=== PATIENT | female | born 1945 | race Caucasian/White ===

== ENCOUNTER 2023-04-11 16:05 | Emergency (ER) | payer OTHER ==
[~2023-04-11] VITALS: Ht 160 cm; Wt 92.0 kg
[2023-04-11] MEDS ORDERED: AML5T PO (19:49)
[2023-04-11 20:26] VITALS: BP 165/68
== END 2023-04-11 20:32 | disposition home or self-care (01) ==
LOC: ER 16:05
DX: I10 Essential (primary) hypertension (principal); Z88.8 Allergy status to other drugs, medicaments and biological substances

== ENCOUNTER 2023-06-08 11:45 | Inpatient (IN) | payer OTHER ==
[~2023-06-08] VITALS: Ht 160 cm; Wt 91.5 kg
[~2023-06-08 11:45] MED LIST: AML5T PO
[2023-06-08] MEDS ORDERED: VANCOMYCIN PER PHARMACY 0 MG IV SCH (12:45)
[2023-06-08] MEDS ORDERED: PIPERACILLIN-TAZOB 3.375GM 100 ML IV ONE (12:45)
[2023-06-08] MEDS ORDERED: VANCOMYCIN 1GM/250ML 250 ML IV ONE (13:00)
[2023-06-08 13:14] LABS: Basophils # (auto) 0.1 10 ^3/uL (0-0.2); Basophils % (auto) 0.7 % (0.0-2.0); Eosinophils # (auto) 0.4 10 ^3/uL (0-0.8); Eosinophils % (auto) 4.2 % (0.0-7.0); Hematocrit 27.7 % (36.0-46.0); Hemoglobin 9.1 g/dL (12.2-16.2); Lymphocytes # (auto) 0.9 10 ^3/uL (0.4-5.4); Lymphocytes % (auto) 9.8 % (10.0-50.0); Mean Corpuscular Hemoglobin 29.4 pg (28.0-32.0); Mean Corpuscular Hgb Conc. 32.9 g/dL (32.0-36.0); Mean Corpuscular Volume 89.3 fL (80.0-100.0); Monocytes # (auto) 0.7 10 ^3/uL (0-1.3); Monocytes % (auto) 7.9 % (0.0-12.0); Neutrophils # (auto) 7.2 10 ^3/uL (1.6-8.6); Neutrophils % (auto) 77.4 % (37.0-80.0); Red Cell Distribution Width 13.5 % (11.8-14.3); White Blood Cell 9.3 10^3/uL (4.4-10.8)
[2023-06-08] MEDS ORDERED: FUROSEMIDE 40 MG/4 ML VIAL IV ONE (13:30)
[2023-06-08 13:49] LABS: Alanine Aminotransferase 15 U/L (7-40); Albumin 4.1 g/dL (3.2-4.8); Alkaline Phosphatase 95 U/L (46-116); Aspartate Aminotransferase 17 U/L (13-40); BUN/Creatinine Ratio 16.7 (10.0-20.0); Bilirubin, Total 0.5 mg/dL (0.2-1.0); Blood Urea Nitrogen 41 mg/dL (9-23); Chloride 102 mmol/L (98-107); Glucose 98 mg/dL (74-106); Potassium 4.8 mmol/L (3.5-5.1); Sodium 136 mmol/L (136-145)
[2023-06-08 14:39] LABS: Erythrocyte Sedimentation Rate 111 mm/hr (0-20)
[2023-06-08] MEDS ORDERED: ONDANSETRON HCL 4 MG/2 ML VIAL IV PRN (14:45)
[2023-06-08] MEDS ORDERED: TEMAZEPAM 15 MG CAP PO PRN (14:45)
[2023-06-08] MEDS ORDERED: ACETAMINOPHEN 325 MG TAB PO PRN (14:45)
[2023-06-08] MEDS ORDERED: NITROGLYCERIN 0.4 MG SL TAB SL PRN (14:45)
[2023-06-08] MEDS ORDERED: DOCUSATE SOD 100 MG CAP PO PRN (14:45)
[2023-06-08] MEDS ORDERED: MORPHINE SULFATE INJ 2 MG/ml SYRG IV PRN ×2 (14:45)
[2023-06-08] MEDS: SODIUM CHLORIDE 0.9% 1,000 ML IV SCH (20:38)
[2023-06-08] MEDS: PIPERACILLIN-TAZOB 3.375GM 100 ML IV SCH (23:27)
[2023-06-08] MEDS: HYDROcodone-ACET 5/325MG TAB PO PRN (23:27)
[2023-06-09] VITALS (7 sets, daily range): BP systolic 148–160; BP diastolic 61–70; PULSE 75–93; RESP 16–18; TEMP 97.6–97.9; O2SAT 97–98
[2023-06-09] MEDS: SODIUM CHLORIDE 0.9% 1,000 ML IV SCH ×2 (00:45→12:24)
[2023-06-09 06:05] LABS: Urine Bacteria NONE SEEN /hpf (None Seen); Urine Blood Negative /uL (Negative); Urine Clarity Clear (Clear); Urine Color Yellow (Yellow); Urine Protein, UAD Negative (Negative); Urine Specific Gravity 1.013 (1.001-1.035); Urine Urobilinogen Normal (Negative); Urine WBC 3 /hpf (0 - 5); Urine pH 5.5 (5.0-8.0)
[2023-06-09] MEDS: PIPERACILLIN-TAZOB 3.375GM 100 ML IV SCH (07:09)
[2023-06-09 07:26] LABS: Basophils # (auto) 0.1 10 ^3/uL (0-0.2); Basophils % (auto) 0.6 % (0.0-2.0); Eosinophils # (auto) 0.5 10 ^3/uL (0-0.8); Eosinophils % (auto) 4.8 % (0.0-7.0); Hematocrit 27.9 % (36.0-46.0); Hemoglobin 9.1 g/dL (12.2-16.2); Lymphocytes # (auto) 0.8 10 ^3/uL (0.4-5.4); Lymphocytes % (auto) 8.5 % (10.0-50.0); Mean Corpuscular Hemoglobin 29.2 pg (28.0-32.0); Mean Corpuscular Hgb Conc. 32.7 g/dL (32.0-36.0); Mean Corpuscular Volume 89.3 fL (80.0-100.0); Monocytes # (auto) 0.7 10 ^3/uL (0-1.3); Monocytes % (auto) 7.7 % (0.0-12.0); Neutrophils # (auto) 7.5 10 ^3/uL (1.6-8.6); Neutrophils % (auto) 78.4 % (37.0-80.0); Nucleated Red Blood Cells % 0.1 %; Red Blood Cells 3.12 10^6/uL (4.0-5.20); Red Cell Distribution Width 13.2 % (11.8-14.3); White Blood Cell 9.6 10^3/uL (4.4-10.8)
[2023-06-09 07:54] LABS: Alanine Aminotransferase 10 U/L (7-40); Albumin 4.3 g/dL (3.2-4.8); Alkaline Phosphatase 71 U/L (46-116); Anion Gap 9.7 (5-15); Aspartate Aminotransferase 17 U/L (13-40); BUN/Creatinine Ratio 16.2 (10.0-20.0); Blood Urea Nitrogen 38 mg/dL (9-23); Calcium 9.9 mg/dL (8.5-10.1); Carbon Dioxide 24.3 mmol/L (20-30); Chloride 101 mmol/L (98-107); Glucose 98 mg/dL (74-106); Potassium 4.1 mmol/L (3.5-5.1); Sodium 135 mmol/L (136-145)
[2023-06-09 07:55] LABS: Bilirubin, Total 0.5 mg/dL (0.2-1.0); Total Protein 7.7 g/dL (5.7-8.2)
[2023-06-09 09:38] LABS: INR 1.05 (0.9-1.15); Partial Thromboplastin Time 33.1 SEC (24.5-34.5)
[2023-06-09] MEDS ORDERED: fentaNYL CITRATE 100 MCG/2 ML VL ONE (10:18)
[2023-06-09] MEDS ORDERED: MIDAZOLAM HCL 2MG/2ML 2ml VIAL (1mg/ml) ONE (10:19)
[2023-06-09] MEDS ORDERED: PROPOFOL 10 MG/ML 20 ML IV ONE (10:47)
[2023-06-09] MEDS ORDERED: DexAMETHasone SOD PHOS 10MG/1ML VIAL INJ ONE (10:47)
[2023-06-09] MEDS ORDERED: KETAMINE HCL 10 ML ONE (10:48)
[2023-06-09] MEDS ORDERED: ePHEDrine SULFATE 50 MG/ML AMP IV PRN (11:00)
[2023-06-09] MEDS ORDERED: MORPHINE SULFATE 4 MG/ML SYR/VIAL IV PRN (11:00)
[2023-06-09] MEDS ORDERED: HYDROmorphone HCL 2 MG/ML VL/or syr IV PRN (11:00)
[2023-06-09] MEDS ORDERED: ONDANSETRON HCL 4 MG/2 ML VIAL IV PRN (11:00)
[2023-06-09] MEDS ORDERED: ACCU-CHEK COMFORT CURVE STRIP VI ONE (11:00)
[2023-06-09] MEDS ORDERED: LABETALOL HCL 5 MG/ML 4ML SYRINGE IV PRN (11:00)
[2023-06-09] MEDS ORDERED: MIDAZOLAM HCL 2MG/2ML 2ml VIAL (1mg/ml) IV PRN (11:00)
[2023-06-09] MEDS: MULTIPLE VITAMIN TAB PO SCH (12:50)
[2023-06-09] MEDS: ENOXAPARIN SOD 30 MG/0.3 ML SYRINGE SC SCH (12:50)
[2023-06-09] MEDS: HYDROcodone-ACET 5/325MG TAB PO PRN (12:57)
[2023-06-09] MEDS ORDERED: ATOR40TA52 PO (14:22)
[2023-06-09] MEDS ORDERED: MET50T PO (14:22)
[2023-06-09] MEDS ORDERED: QUET100T47 PO (14:22)
[2023-06-09] MEDS ORDERED: GABA-339 PO (14:22)
[2023-06-09] MEDS ORDERED: BUPR100T16 PO (14:22)
[2023-06-09] MEDS ORDERED: FEBU80TA3 PO (14:22)
[2023-06-09] MEDS ORDERED: ALEN35TA18 PO (14:22)
[2023-06-09] MEDS ORDERED: AMLO1TAB22 PO (14:22)
[2023-06-09] MEDS ORDERED: FENO145T27 PO (14:22)
[2023-06-09] MEDS ORDERED: HYDR-4297 PO (14:22)
[2023-06-09] MEDS ORDERED: LEV25T PO (14:22)
[2023-06-09] MEDS ORDERED: LIOT25TA19 PO (14:22)
[2023-06-09] MEDS ORDERED: PATI1POW PO (14:22)
[2023-06-09] MEDS ORDERED: PANT40T PO (14:22)
[2023-06-09] MEDS ORDERED: LOS25T PO (14:22)
[2023-06-09] MEDS: cefTRIAXone 1GM/50ML D5W 50 ML IV SCH (14:33)
[2023-06-09 15:42] LABS: Protein, Urine 18.9 mg/dL (0.0-11.9)
[2023-06-09 15:45] LABS: Creatinine, Urine 57.13 mg/dL (30.0-125.0)
[2023-06-09] MEDS ORDERED: LIDOCAINE 1% (LOCAL ANESTH.) PF 5ml SDV ID ONE (16:30)
[2023-06-09] MEDS ORDERED: VANCOMYCIN PER PHARMACY 0 MG IV SCH (18:15)
[2023-06-09] MEDS ORDERED: VANCOMYCIN 1GM/250ML 250 ML IV ONE (20:00)
[2023-06-09] MEDS: hydrALAZINE HCL 25 MG TAB PO SCH (21:45)
[2023-06-09] MEDS: METOPROLOL TARTRATE 50 MG TAB PO SCH (21:46)
[2023-06-09] MEDS: metroNIDAZOLE 500 MG TAB PO SCH (21:46)
[2023-06-09] MEDS: SODIUM CHLOR 0.9% PF (SALINE LOCK) 10ML VIAL/SYR IV SCH (23:39)
[2023-06-10] VITALS (7 sets, daily range): BP systolic 121–163; BP diastolic 53–67; PULSE 64–72; RESP 14–20; TEMP 97.6–98.3; O2SAT 94–98
[2023-06-10] MEDS: HYDROcodone-ACET 5/325MG TAB PO PRN ×3 (01:25→21:17)
[2023-06-10] MEDS: metroNIDAZOLE 500 MG TAB PO SCH ×3 (05:43→21:12)
[2023-06-10 06:59] LABS: Chloride 103 mmol/L (98-107); Potassium 4.4 mmol/L (3.5-5.1); Sodium 135 mmol/L (136-145)
[2023-06-10 07:00] LABS: Anion Gap 7.9 (5-15); Carbon Dioxide 24.1 mmol/L (20-30)
[2023-06-10 07:01] LABS: Calcium 9.7 mg/dL (8.5-10.1)
[2023-06-10 07:05] LABS: Glucose 108 mg/dL (74-106); Uric Acid 4.6 mg/dL (3.1-7.8)
[2023-06-10 07:06] LABS: BUN/Creatinine Ratio 20.4 (10.0-20.0); Blood Urea Nitrogen 33 mg/dL (9-23); LDL Cholesterol 95 mg/dL (< 100); Triglycerides 176 mg/dL (< 150)
[2023-06-10 07:07] LABS: Cholesterol 147 mg/dL (< 200); Creatine Kinase IFCC 50 U/L (34-145); HDL Cholesterol 27 mg/dL (40-59)
[2023-06-10 07:08] LABS: Phosphorus 3.8 mg/dL (2.4-5.1)
[2023-06-10 07:38] LABS: Basophils # (auto) 0 10 ^3/uL (0-0.2); Basophils % (auto) 0.3 % (0.0-2.0); Eosinophils # (auto) 0 10 ^3/uL (0-0.8); Eosinophils % (auto) 0.1 % (0.0-7.0); Hematocrit 26.9 % (36.0-46.0); Hemoglobin 8.9 g/dL (12.2-16.2); Lymphocytes # (auto) 0.7 10 ^3/uL (0.4-5.4); Lymphocytes % (auto) 7.5 % (10.0-50.0); Mean Corpuscular Hemoglobin 29.3 pg (28.0-32.0); Mean Corpuscular Hgb Conc. 33.1 g/dL (32.0-36.0); Mean Corpuscular Volume 88.7 fL (80.0-100.0); Monocytes # (auto) 0.5 10 ^3/uL (0-1.3); Monocytes % (auto) 5.4 % (0.0-12.0); Neutrophils # (auto) 8.1 10 ^3/uL (1.6-8.6); Neutrophils % (auto) 86.7 % (37.0-80.0); Red Blood Cells 3.03 10^6/uL (4.0-5.20); Red Cell Distribution Width 13.2 % (11.8-14.3); White Blood Cell 9.4 10^3/uL (4.4-10.8)
[2023-06-10] MEDS: cefTRIAXone 1GM/50ML D5W 50 ML IV SCH (08:43)
[2023-06-10] MEDS: MULTIPLE VITAMIN TAB PO SCH (08:46)
[2023-06-10] MEDS: LOSARTAN POTASSIUM 25 MG TAB PO SCH (08:47)
[2023-06-10] MEDS: amLODIPine BESYLATE 5 MG TAB PO SCH (08:47)
[2023-06-10] MEDS: ENOXAPARIN SOD 30 MG/0.3 ML SYRINGE SC SCH (08:48)
[2023-06-10] MEDS: hydrALAZINE HCL 25 MG TAB PO SCH ×2 (10:23→22:22)
[2023-06-10] MEDS: METOPROLOL TARTRATE 50 MG TAB PO SCH ×2 (10:24→22:21)
[2023-06-10] MEDS: SODIUM CHLOR 0.9% PF (SALINE LOCK) 10ML VIAL/SYR IV SCH ×2 (10:24→21:13)
[2023-06-10] MEDS: VANCOMYCIN 1GM/250ML 250 ML IV SCH (21:00)
[2023-06-10] MEDS: ATORVASTATIN 20 MG TAB PO SCH (21:11)
[2023-06-11] VITALS (7 sets, daily range): BP systolic 113–180; BP diastolic 48–77; PULSE 55–70; RESP 16–20; TEMP 97–98.6; O2SAT 95–98
[2023-06-11] MEDS: metroNIDAZOLE 500 MG TAB PO SCH ×3 (05:33→21:07)
[2023-06-11] MEDS: HYDROcodone-ACET 5/325MG TAB PO PRN ×2 (05:34→16:10)
[2023-06-11 08:02] LABS: Anion Gap 7.7 (5-15); Calcium 10.1 mg/dL (8.5-10.1); Carbon Dioxide 24.3 mmol/L (20-30); Chloride 104 mmol/L (98-107); Potassium 4.6 mmol/L (3.5-5.1); Sodium 136 mmol/L (136-145)
[2023-06-11 08:08] LABS: BUN/Creatinine Ratio 22.5 (10.0-20.0); Blood Urea Nitrogen 36 mg/dL (9-23); Glucose 77 mg/dL (74-106)
[2023-06-11] MEDS: SODIUM CHLOR 0.9% PF (SALINE LOCK) 10ML VIAL/SYR IV SCH ×2 (08:56→21:14)
[2023-06-11] MEDS: cefTRIAXone 1GM/50ML D5W 50 ML IV SCH (08:56)
[2023-06-11] MEDS: hydrALAZINE HCL 25 MG TAB PO SCH ×2 (08:58→21:06)
[2023-06-11] MEDS: LOSARTAN POTASSIUM 25 MG TAB PO SCH (08:59)
[2023-06-11] MEDS: CLOPIDOGREL BISULFATE 75 MG TAB PO SCH (09:00)
[2023-06-11] MEDS: MULTIPLE VITAMIN TAB PO SCH (09:00)
[2023-06-11] MEDS: METOPROLOL TARTRATE 50 MG TAB PO SCH ×2 (09:00→21:07)
[2023-06-11] MEDS: amLODIPine BESYLATE 5 MG TAB PO SCH (09:00)
[2023-06-11] MEDS: ENOXAPARIN SOD 30 MG/0.3 ML SYRINGE SC SCH (09:01)
[2023-06-11] MEDS: hydrALAZINE HCL 20 MG/ML VL IV PRN (17:43)
[2023-06-11] MEDS: VANCOMYCIN 1GM/250ML 250 ML IV SCH (21:06)
[2023-06-11] MEDS: ATORVASTATIN 20 MG TAB PO SCH (21:07)
[2023-06-12] VITALS (11 sets, daily range): BP systolic 147–180; BP diastolic 59–80; PULSE 57–68; RESP 12–18; TEMP 97–98.8; O2SAT 93–97
[2023-06-12] MEDS: hydrALAZINE HCL 20 MG/ML VL IV PRN ×2 (00:23→05:40)
[2023-06-12] MEDS: metroNIDAZOLE 500 MG TAB PO SCH (05:40)
[2023-06-12] MEDS ORDERED: ANGIOMAX 250 MG VIAL IV ONE (09:04)
[2023-06-12] MEDS ORDERED: fentaNYL CITRATE 100 MCG/2 ML VL ONE (09:05)
[2023-06-12] MEDS ORDERED: MIDAZOLAM HCL 2MG/2ML 2ml VIAL (1mg/ml) ONE (09:05)
[2023-06-12] MEDS ORDERED: SODIUM CHL 0.9% 0 ML ONE (09:05)
[2023-06-12] MEDS ORDERED: LIDOCAINE 2%HCL (LOCAL ANESTH.) INJ 20ML MDV ONE (09:45)
[2023-06-12] MEDS ORDERED: IODIXANOL 320MG/ML 100ML BTL IV ONE (09:45)
[2023-06-12] MEDS ORDERED: ENOXAPARIN SOD 40 MG/0.4 ML SYRINGE SC SCH (10:00)
[2023-06-12] MEDS ORDERED: LOSARTAN POTASSIUM 50 MG TAB PO SCH (10:00)
[2023-06-12] MEDS ORDERED: amLODIPine BESYLATE 5 MG TAB PO SCH (10:00)
[2023-06-12] MEDS: SODIUM CHLOR 0.9% PF (SALINE LOCK) 10ML VIAL/SYR IV SCH (11:33)
[2023-06-12] MEDS: hydrALAZINE HCL 25 MG TAB PO SCH (11:33)
[2023-06-12] MEDS: METOPROLOL TARTRATE 50 MG TAB PO SCH (11:35)
[2023-06-12] MEDS: MULTIPLE VITAMIN TAB PO SCH (11:35)
[2023-06-12] MEDS: CLOPIDOGREL BISULFATE 75 MG TAB PO SCH (11:35)
[2023-06-12] MEDS ORDERED: CLOP75TA70 PO (12:26)
[2023-06-12] MEDS ORDERED: LOS25T PO (12:26)
[2023-06-12] MEDS ORDERED: PATI1POW PO (12:26)
[2023-06-12] MEDS ORDERED: AMLO1TAB22 PO (12:26)
[2023-06-12] MEDS ORDERED: HYDR-4297 PO (12:26)
[2023-06-12] MEDS ORDERED: ceFAZolin 2 GM/D5W100ml 100 ML IV SCH (14:00)
== END 2023-06-12 18:52 | disposition home health service (06) | DRG 617 ==
LOC: ER 11:45 → TELE 14:41 → TELE-WESTW 06-09 12:32
PROVIDERS: ADMIT Hospitalist; ATTEND Hospitalist
PROC: 0Y6M0ZC Detachment at Right Foot, Partial 3rd Ray, Open Approach (ICD-10-PCS; 2023-06-09)
PROC: 02HV33Z Insertion of Infusion Device into Superior Vena Cava, Percutaneous Approach (ICD-10-PCS; 2023-06-09)
PROC: B548ZZA Ultrasonography of Superior Vena Cava, Guidance (ICD-10-PCS; 2023-06-09)
PROC: B41GYZZ Fluoroscopy of Left Lower Extremity Arteries using Other Contrast (ICD-10-PCS; principal; 2023-06-12)
PROC: B41DYZZ Fluoroscopy of Aorta and Bilateral Lower Extremity Arteries using Other Contrast (ICD-10-PCS; 2023-06-12)
DX: E11.69 Type 2 diabetes mellitus with other specified complication (principal); E87.1 Hypo-osmolality and hyponatremia; I12.0 Hypertensive chronic kidney disease with stage 5 chronic kidney disease or end stage renal disease; L03.115 Cellulitis of right lower limb; M86.8X7 Other osteomyelitis, ankle and foot; E11.621 Type 2 diabetes mellitus with foot ulcer; N17.9 Acute kidney failure, unspecified; N18.5 Chronic kidney disease, stage 5; L97.519 Non-pressure chronic ulcer of other part of right foot with unspecified severity; D63.1 Anemia in chronic kidney disease; E11.22 Type 2 diabetes mellitus with diabetic chronic kidney disease; E66.9 Obesity, unspecified; Z96.651 Presence of right artificial knee joint; E11.51 Type 2 diabetes mellitus with diabetic peripheral angiopathy without gangrene; E11.42 Type 2 diabetes mellitus with diabetic polyneuropathy; Z79.82 Long term (current) use of aspirin; Z68.35 Body mass index [BMI] 35.0-35.9, adult; Z88.8 Allergy status to other drugs, medicaments and biological substances
CPT/HCPCS: 36415; 36569; 71045; 73630; 73700; 75710; 76937; 80048; 80053; 80061; 80202; 81001; 82306; 82550; 82570; 82962; 83036; 83605; 84100; 84156; 84300; 84443; 84550; 85025; 85610; 85652; 85730; 86141; 87040; 87070; 87075; 87077; 87186; 87205; 93306; 93925; 96365; 96375; 97110; 97116; 97163; 97530; 99152; 99291; G0378; J0696; J1100; J2250; J2405; J2543; J2704; Q9967

== ENCOUNTER 2023-07-16 11:26 | Emergency (ER) | payer OTHER ==
[~2023-07-16] VITALS: Ht 160 cm; Wt 78.0 kg
[~2023-07-16 11:26] MED LIST changes: +ALEN35TA18 PO; -AML5T PO; +AMLO1TAB22 PO; +ATOR40TA52 PO; +BUPR100T16 PO; +CLOP75TA70 PO; +FEBU80TA3 PO; +FENO145T27 PO; +GABA-339 PO; +HYDR-4297 PO; +LEV25T PO; +LIOT25TA19 PO; +LOS25T PO; +MET50T PO; +PANT40T PO; +PATI1POW PO; +QUET100T47 PO
[2023-07-16 12:29] VITALS: BP 157/57; PULSE 74; RESP 16; O2SAT 97
[2023-07-16 12:32] VITALS: PULSE 66
== END 2023-07-16 14:02 | disposition home or self-care (01) ==
LOC: ER 11:26 → EDBD 11:26 → ER 14:02
DX: S00.03XA Contusion of scalp, initial encounter (principal); M54.2 Cervicalgia; I12.9 Hypertensive chronic kidney disease with stage 1 through stage 4 chronic kidney disease, or unspecified chronic kidney disease; N18.9 Chronic kidney disease, unspecified; W01.0XXA Fall on same level from slipping, tripping and stumbling without subsequent striking against object, initial encounter; Y93.01 Activity, walking, marching and hiking; Y92.098 Other place in other non-institutional residence as the place of occurrence of the external cause; Y99.8 Other external cause status
CPT/HCPCS: 70450; 72125; 99284; L0120

== ENCOUNTER 2023-08-23 11:35 | Inpatient (IN) | payer OTHER ==
[~2023-08-23] VITALS: Ht 160 cm; Wt 91.3 kg
[2023-08-23 12:47] LABS: Eosinophils # (auto) 0.3 10 ^3/uL (0-0.8); Hematocrit 25.6 % (36.0-46.0); Lymphocytes # (auto) 0.6 10 ^3/uL (0.4-5.4); Nucleated Red Blood Cells % 0.1 %; Red Cell Distribution Width 13.6 % (11.8-14.3); White Blood Cell 4.9 10^3/uL (4.4-10.8)
[2023-08-23 12:49] LABS: Basophils # (auto) 0.1 10 ^3/uL (0-0.2); Eosinophils % (auto) 6.8 % (0.0-7.0); Hemoglobin 8.4 g/dL (12.2-16.2); Lymphocytes % (auto) 11.6 % (10.0-50.0); Mean Corpuscular Hemoglobin 29.9 pg (28.0-32.0); Mean Corpuscular Hgb Conc. 32.8 g/dL (32.0-36.0); Mean Corpuscular Volume 91.1 fL (80.0-100.0); Monocytes # (auto) 0.3 10 ^3/uL (0-1.3); Monocytes % (auto) 6.7 % (0.0-12.0); Neutrophils # (auto) 3.6 10 ^3/uL (1.6-8.6); Neutrophils % (auto) 73.9 % (37.0-80.0); Red Blood Cells 2.81 10^6/uL (4.0-5.20)
[2023-08-23 13:00] LABS: Alanine Aminotransferase 10 U/L (7-40); Albumin 4.1 g/dL (3.2-4.8); Alkaline Phosphatase 68 U/L (46-116); Anion Gap 5 (5-15); Aspartate Aminotransferase 17 U/L (13-40); BUN/Creatinine Ratio 15.5 (10.0-20.0); Bilirubin, Total 0.4 mg/dL (0.2-1.0); Blood Urea Nitrogen 32 mg/dL (9-23); Calcium 9.7 mg/dL (8.7-10.4); Carbon Dioxide 27 mmol/L (20-30); Chloride 106 mmol/L (98-107); Glucose 89 mg/dL (74-106); Potassium 5.3 mmol/L (3.5-5.1); Sodium 138 mmol/L (136-145); Total Protein 6.9 g/dL (5.7-8.2)
[2023-08-23] MEDS ORDERED: SODIUM ZIRCONIUM CYCL 10 GM PAK PO ONE (15:15)
[2023-08-23] MEDS ORDERED: VANCOMYCIN 1GM/250ML 250 ML IV ONE (15:15)
[2023-08-23 17:42] VITALS: PULSE 65; RESP 18; O2SAT 95
[2023-08-23] MEDS ORDERED: MORPHINE SULFATE INJ 2 MG/ml SYRG IV PRN (18:00)
[2023-08-23] MEDS ORDERED: VANCOMYCIN PER PHARMACY 0 MG IV SCH (18:00)
[2023-08-23] MEDS ORDERED: ACETAMINOPHEN 325 MG TAB PO PRN (18:00)
[2023-08-23] MEDS ORDERED: NITROGLYCERIN 0.4 MG SL TAB SL PRN (18:00)
[2023-08-23] MEDS: HYDROcodone-ACET 5/325MG TAB PO PRN (19:03)
[2023-08-23] MEDS: cefTRIAXone 1GM/50ML D5W 50 ML IV SCH (19:03)
[2023-08-24] MEDS: HYDROcodone-ACET 5/325MG TAB PO PRN ×2 (01:33→18:19)
[2023-08-24 04:22] LABS: Basophils # (auto) 0 10 ^3/uL (0-0.2); Basophils % (auto) 0.8 % (0.0-2.0); Hemoglobin 8.2 g/dL (12.2-16.2); Lymphocytes # (auto) 0.6 10 ^3/uL (0.4-5.4); White Blood Cell 5.8 10^3/uL (4.4-10.8)
[2023-08-24 04:24] LABS: Eosinophils # (auto) 0.3 10 ^3/uL (0-0.8); Eosinophils % (auto) 5.7 % (0.0-7.0); Hematocrit 24.8 % (36.0-46.0); Lymphocytes % (auto) 10.3 % (10.0-50.0); Mean Corpuscular Hemoglobin 29.8 pg (28.0-32.0); Mean Corpuscular Volume 90.2 fL (80.0-100.0); Monocytes # (auto) 0.4 10 ^3/uL (0-1.3); Monocytes % (auto) 7.4 % (0.0-12.0); Neutrophils # (auto) 4.4 10 ^3/uL (1.6-8.6); Neutrophils % (auto) 75.8 % (37.0-80.0); Red Blood Cells 2.75 10^6/uL (4.0-5.20); Red Cell Distribution Width 13.6 % (11.8-14.3)
[2023-08-24 04:43] LABS: Alanine Aminotransferase 11 U/L (7-40); Albumin 4.2 g/dL (3.2-4.8); Alkaline Phosphatase 58 U/L (46-116); Anion Gap 8 (5-15); Aspartate Aminotransferase 17 U/L (13-40); Blood Urea Nitrogen 31 mg/dL (9-23); Calcium 9.9 mg/dL (8.7-10.4); Carbon Dioxide 24 mmol/L (20-30); Chloride 104 mmol/L (98-107); Glucose 93 mg/dL (74-106); Sodium 136 mmol/L (136-145)
[2023-08-24 04:44] LABS: Bilirubin, Total 0.3 mg/dL (0.2-1.0); Total Protein 6.9 g/dL (5.7-8.2)
[2023-08-24] MEDS ORDERED: VANCOMYCIN 1GM/250ML 250 ML IV ONE (08:30)
[2023-08-24 11:24] VITALS: PULSE 73; RESP 20; O2SAT 97
[2023-08-24] MEDS: cefTRIAXone 1GM/50ML D5W 50 ML IV SCH (11:57)
[2023-08-24 12:42] VITALS: BP 153/70; PULSE 71; RESP 17; TEMP 98.6; O2SAT 98
[2023-08-24 17:00] VITALS: BP 153/64; PULSE 71; RESP 18; TEMP 98.4; O2SAT 100
[2023-08-24 20:00] VITALS: PULSE 75
[2023-08-24 20:14] LABS: Urine Bacteria NONE SEEN /hpf (None Seen); Urine Blood Negative /uL (Negative); Urine Clarity Clear (Clear); Urine Color Colorless (Yellow); Urine Protein, UAD Negative (Negative); Urine Specific Gravity 1.012 (1.001-1.035); Urine Urobilinogen Normal (Negative); Urine WBC <1 /hpf (0 - 5)
[2023-08-24] MEDS: hydrALAZINE HCL 20 MG/ML VL IV PRN (20:46)
[2023-08-24 21:51] VITALS: BP 168/66; PULSE 69; RESP 18; TEMP 98.7; O2SAT 99
[2023-08-25] VITALS (9 sets, daily range): BP systolic 146–175; BP diastolic 55–85; PULSE 69–80; RESP 12–19; TEMP 97.7–98.1; O2SAT 94–100
[2023-08-25] MEDS: hydrALAZINE HCL 20 MG/ML VL IV PRN ×3 (05:07→17:05)
[2023-08-25 05:47] LABS: Chloride 108 mmol/L (98-107); Potassium 4.7 mmol/L (3.5-5.1); Sodium 140 mmol/L (136-145)
[2023-08-25 05:48] LABS: Anion Gap 7 (5-15); Carbon Dioxide 25 mmol/L (20-30)
[2023-08-25 05:49] LABS: Calcium 9.6 mg/dL (8.5-10.1)
[2023-08-25 05:54] LABS: BUN/Creatinine Ratio 15.5 (10.0-20.0); Blood Urea Nitrogen 27 mg/dL (9-23); Glucose 91 mg/dL (74-106)
[2023-08-25] MEDS: cefTRIAXone 1GM/50ML D5W 50 ML IV SCH (08:31)
[2023-08-25] MEDS ORDERED: ONDANSETRON HCL 4 MG/2 ML VIAL ONE (11:07)
[2023-08-25] MEDS ORDERED: DexAMETHasone SOD PHOS 10MG/1ML VIAL INJ ONE (11:07)
[2023-08-25] MEDS ORDERED: PROPOFOL 10 MG/ML 20 ML IV ONE ×2 (11:07→12:28)
[2023-08-25] MEDS ORDERED: GLYCOPYRROLATE 0.2 MG/ML 1ML VIAL ONE (11:07)
[2023-08-25] MEDS ORDERED: fentaNYL CITRATE 100 MCG/2 ML VL ONE (11:07)
[2023-08-25] MEDS ORDERED: LABETALOL HCL 5 MG/ML 4ML SYRINGE IV PRN (13:00)
[2023-08-25] MEDS ORDERED: ONDANSETRON HCL 4 MG/2 ML VIAL IV PRN (13:00)
[2023-08-25] MEDS ORDERED: NALOXONE HCL 0.4 MG/ML VIAL IV PRN (13:00)
[2023-08-25] MEDS ORDERED: ePHEDrine SULFATE 50 MG/ML AMP IV PRN (13:00)
[2023-08-25] MEDS ORDERED: fentaNYL CITRATE 100 MCG/2 ML VL IV PRN (13:00)
[2023-08-25] MEDS ORDERED: FLUMAZENIL 0.1 MG/ML INJ 10ML MDV IV PRN (13:00)
[2023-08-25] MEDS ORDERED: hydrALAZINE HCL 20 MG/ML VL IV PRN (13:00)
[2023-08-25] MEDS ORDERED: HYDROmorphone HCL 2 MG/ML VL/or syr IV PRN (13:00)
[2023-08-25] MEDS: VANCOMYCIN 1GM/250ML 250 ML IV SCH (14:10)
[2023-08-25] MEDS: HYDROcodone-ACET 5/325MG TAB PO PRN ×2 (14:59→20:14)
[2023-08-25] MEDS: ONDANSETRON HCL 4 MG/2 ML VIAL IV PRN (21:22)
[2023-08-26] VITALS (7 sets, daily range): BP systolic 103–179; BP diastolic 49–74; PULSE 61–76; RESP 16–18; TEMP 97.8–98.2; O2SAT 93–96
[2023-08-26] MEDS: ONDANSETRON HCL 4 MG/2 ML VIAL IV PRN ×5 (01:00→21:49)
[2023-08-26] MEDS: VANCOMYCIN 1GM/250ML 250 ML IV SCH (02:02)
[2023-08-26] MEDS: HYDROcodone-ACET 5/325MG TAB PO PRN (08:27)
[2023-08-26] MEDS: cefTRIAXone 1GM/50ML D5W 50 ML IV SCH (08:27)
[2023-08-26] MEDS ORDERED: VANCOMYCIN 1GM/250ML 250 ML IV SCH (14:00)
[2023-08-26] MEDS: VANCOMYCIN 750mg/250ml 250 ML IV SCH (16:09)
[2023-08-26] MEDS: LACTULOSE 20Gm/30ML SOLN PO SCH ×2 (17:33→22:00)
[2023-08-26] MEDS: hydrALAZINE HCL 20 MG/ML VL IV PRN (17:48)
[2023-08-26] MEDS: hydrALAZINE HCL 25 MG TAB PO SCH (22:00)
[2023-08-26] MEDS: METOPROLOL TARTRATE 50 MG TAB PO SCH (22:00)
[2023-08-26] MEDS: PANTOPRAZOLE 40 MG TAB PO SCH (22:00)
[2023-08-26] MEDS ORDERED: ATORVASTATIN 20 MG TAB PO SCH (22:00)
[2023-08-26] MEDS ORDERED: QUEtiapine FUMARATE 100 MG TAB PO SCH (22:00)
[2023-08-26] MEDS: GABAPENTIN 300 MG CAP PO SCH (22:00)
[2023-08-27] MEDS: VANCOMYCIN 750mg/250ml 250 ML IV SCH (04:09)
[2023-08-27 05:00] VITALS: BP 165/86; PULSE 71; RESP 16; TEMP 97.5; O2SAT 97
[2023-08-27] MEDS: hydrALAZINE HCL 20 MG/ML VL IV PRN (05:53)
[2023-08-27] MEDS: ONDANSETRON HCL 4 MG/2 ML VIAL IV PRN (05:54)
[2023-08-27 08:00] VITALS: PULSE 72; RESP 16; O2SAT 97
[2023-08-27 08:31] VITALS: BP 165/70; PULSE 79; RESP 17; TEMP 98; O2SAT 95
[2023-08-27] MEDS: METOPROLOL TARTRATE 50 MG TAB PO SCH (08:54)
[2023-08-27] MEDS: hydrALAZINE HCL 25 MG TAB PO SCH (08:58)
[2023-08-27] MEDS: PANTOPRAZOLE 40 MG TAB PO SCH (08:59)
[2023-08-27] MEDS: GABAPENTIN 300 MG CAP PO SCH (09:00)
[2023-08-27] MEDS: cefTRIAXone 1GM/50ML D5W 50 ML IV SCH (09:02)
[2023-08-27] MEDS ORDERED: LEVOTHYROXINE SODIUM 25 MCG TAB PO SCH (10:00)
[2023-08-27] MEDS ORDERED: CLOPIDOGREL BISULFATE 75 MG TAB PO SCH (10:00)
[2023-08-27] MEDS ORDERED: amLODIPine BESYLATE 5 MG TAB PO SCH (10:00)
[2023-08-27] MEDS ORDERED: LOSARTAN POTASSIUM 25 MG TAB PO SCH (10:00)
[2023-08-27] MEDS: LACTULOSE 20Gm/30ML SOLN PO SCH (10:00)
[2023-08-27 13:00] VITALS: BP 140/64; PULSE 63; RESP 17; TEMP 98.1; O2SAT 96
[2023-08-27] MEDS ORDERED: AMOX500T86 PO (13:16)
[2023-08-27] MEDS ORDERED: SENN-105 PO (13:17)
[2023-08-27 13:48] VITALS: BP 165/70; PULSE 79; TEMP 36.7
== END 2023-08-27 15:45 | disposition home or self-care (01) | DRG 617 ==
LOC: ER 11:35 → TELE 17:56 → TELE-CENTR 08-24 12:36
PROVIDERS: ADMIT Internal Medicine; ATTEND Internal Medicine
PROC: 0Y6V0Z0 Detachment at Right 4th Toe, Complete, Open Approach (ICD-10-PCS; principal; 2023-08-25 12:11)
PROC: 0JBQ0ZZ Excision of Right Foot Subcutaneous Tissue and Fascia, Open Approach (ICD-10-PCS; 2023-08-25 12:11)
DX: E11.69 Type 2 diabetes mellitus with other specified complication (principal); L03.115 Cellulitis of right lower limb; M86.171 Other acute osteomyelitis, right ankle and foot; E11.51 Type 2 diabetes mellitus with diabetic peripheral angiopathy without gangrene; E87.5 Hyperkalemia; E11.22 Type 2 diabetes mellitus with diabetic chronic kidney disease; E11.621 Type 2 diabetes mellitus with foot ulcer; E78.5 Hyperlipidemia, unspecified; F31.9 Bipolar disorder, unspecified; K59.00 Constipation, unspecified; L97.519 Non-pressure chronic ulcer of other part of right foot with unspecified severity; Z88.8 Allergy status to other drugs, medicaments and biological substances; Z80.0 Family history of malignant neoplasm of digestive organs; Z81.8 Family history of other mental and behavioral disorders; Z82.0 Family history of epilepsy and other diseases of the nervous system; Z82.49 Family history of ischemic heart disease and other diseases of the circulatory system; Z83.3 Family history of diabetes mellitus; Z90.710 Acquired absence of both cervix and uterus; I12.9 Hypertensive chronic kidney disease with stage 1 through stage 4 chronic kidney disease, or unspecified chronic kidney disease; N18.32 Chronic kidney disease, stage 3b
CPT/HCPCS: 36415; 71045; 73700; 73718; 80048; 80053; 80202; 81001; 83605; 85025; 87040; 87070; 87075; 87205; 93005; 93926; 96365; 96367; 97163; 97530; G0378; J0696; J1100; J2405; J2704

== ENCOUNTER 2024-04-11 13:05 | Inpatient (IN) | payer OTHER ==
[~2024-04-11] VITALS: Ht 160 cm; Wt 83.1 kg
[~2024-04-11 13:05] MED LIST changes: +AMOX500T86 PO; -FEBU80TA3 PO; -HYDR-4297 PO; +HYDR50TA47 PO; +SENN-105 PO
[2024-04-11 13:29] VITALS: PULSE 80; RESP 20; O2SAT 95
[2024-04-11 14:22] VITALS: BP 149/77; PULSE 60; RESP 20; TEMP 98.5; O2SAT 95
[2024-04-11] MEDS ORDERED: MORPHINE SULFATE INJ 2 MG/ml SYRG IV PRN ×2 (15:30)
[2024-04-11] MEDS ORDERED: NITROGLYCERIN 0.4 MG SL TAB SL PRN (15:30)
[2024-04-11] MEDS ORDERED: FERR1TAB17 PO (15:59)
[2024-04-11] MEDS ORDERED: FEBU80TA6 PO (16:03)
[2024-04-11] MEDS ORDERED: DULO60CA41 PO (16:13)
[2024-04-11 16:41] VITALS: PULSE 70
[2024-04-11 17:00] VITALS: BP 162/60; PULSE 70; RESP 18; TEMP 98.6; O2SAT 95
[2024-04-11] MEDS: SODIUM CHLORIDE 0.9% 1,000 ML IV SCH (17:04)
[2024-04-11 17:14] LABS: Basophils # (auto) 0.1 10 ^3/uL (0-0.2); Basophils % (auto) 0.6 % (0.0-2.0); Eosinophils # (auto) 0.3 10 ^3/uL (0-0.8); Eosinophils % (auto) 3.3 % (0.0-7.0); Hematocrit 23.5 % (36.0-46.0); Hemoglobin 7.4 g/dL (12.2-16.2); Lymphocytes # (auto) 0.8 10 ^3/uL (0.4-5.4); Lymphocytes % (auto) 9.8 % (10.0-50.0); Mean Corpuscular Hemoglobin 26.5 pg (28.0-32.0); Mean Corpuscular Hgb Conc. 31.3 g/dL (32.0-36.0); Mean Corpuscular Volume 84.7 fL (80.0-100.0); Monocytes # (auto) 0.5 10 ^3/uL (0-1.3); Monocytes % (auto) 5.6 % (0.0-12.0); Neutrophils # (auto) 6.8 10 ^3/uL (1.6-8.6); Neutrophils % (auto) 80.7 % (37.0-80.0); Nucleated Red Blood Cells % 0.1 %; Red Blood Cells 2.77 10^6/uL (4.0-5.20); Red Cell Distribution Width 15.1 % (11.8-14.3); White Blood Cell 8.4 10^3/uL (4.4-10.8)
[2024-04-11] MEDS: cefTRIAXone 1GM/50ML D5W 50 ML IV ONE (17:22)
[2024-04-11 17:35] LABS: Alanine Aminotransferase 12 U/L (7-40); Alkaline Phosphatase 78 U/L (46-116); Anion Gap 8 (5-15); Aspartate Aminotransferase 16 U/L (13-40); BUN/Creatinine Ratio 19.1 (10.0-20.0); Blood Urea Nitrogen 40 mg/dL (9-23); Calcium 10.3 mg/dL (8.5-10.1); Carbon Dioxide 22 mmol/L (20-30); Chloride 106 mmol/L (98-107); Glucose 104 mg/dL (74-106); Potassium 5.4 mmol/L (3.5-5.1); Sodium 136 mmol/L (136-145)
[2024-04-11 17:36] LABS: Bilirubin, Total 0.2 mg/dL (0.2-1.0); Total Protein 6.9 g/dL (5.7-8.2)
[2024-04-11] MEDS: hydrALAZINE HCL 20 MG/ML VL IV PRN (17:52)
[2024-04-11] MEDS: SENNA 8.6 MG TAB PO SCH (17:54)
[2024-04-11 18:11] LABS: Urine Bacteria FEW /hpf (None Seen); Urine Blood Negative /uL (Negative); Urine Clarity Clear (Clear); Urine Color Light-Yellow (Yellow); Urine Protein, UAD TRACE (Negative); Urine Urobilinogen Normal (Negative); Urine WBC 10 /hpf (0 - 5); Urine pH 7.5 (5.0-9.0)
[2024-04-11 18:35] LABS: INR 1.08 (0.9-1.15); Partial Thromboplastin Time 28.1 SEC (24.5-34.5); Prothrombin Time 11.4 sec (9.3-11.8)
[2024-04-11 20:00] VITALS: PULSE 109; PULSE 72; RESP 18; O2SAT 95
[2024-04-11 21:00] VITALS: BP 163/60; PULSE 77; RESP 20; TEMP 99.2; O2SAT 95
[2024-04-11] MEDS: hydrALAZINE HCL 25 MG TAB PO SCH (21:44)
[2024-04-11] MEDS: GABAPENTIN 300 MG CAP PO SCH (21:44)
[2024-04-11] MEDS: ATORVASTATIN 20 MG TAB PO SCH (21:45)
[2024-04-11] MEDS: QUEtiapine FUMARATE 100 MG TAB PO SCH (21:45)
[2024-04-11] MEDS: METOPROLOL TARTRATE 50 MG TAB PO SCH (21:45)
[2024-04-11] MEDS: HYDROcodone-ACET 5/325MG TAB PO PRN (21:53)
[2024-04-11] MEDS: ONDANSETRON HCL 4 MG/2 ML VIAL IV PRN (21:53)
[2024-04-12] VITALS (11 sets, daily range): BP systolic 118–168; BP diastolic 55–90; PULSE 55–95; RESP 12–20; TEMP 98.2–99.3; O2SAT 92–98
[2024-04-12] MEDS ORDERED: METOCLOPRAMIDE HCL 5MG/ml INJ 2ml VIAL IV ONE (08:30)
[2024-04-12] MEDS ORDERED: HYDROmorphone HCL 2 MG/ML VL/or syr IV PRN ×2 (08:30)
[2024-04-12] MEDS ORDERED: fentaNYL CITRATE 100 MCG/2 ML VL IV PRN (08:30)
[2024-04-12] MEDS: KETOROLAC TROMETH 30 MG/ML 1ML VIAL IV ONE (08:30)
[2024-04-12] MEDS ORDERED: MORPHINE SULFATE INJ 2 MG/ml SYRG IV PRN (08:30)
[2024-04-12] MEDS: ACCU-CHEK COMFORT CURVE STRIP VI ONE (08:30)
[2024-04-12] MEDS: IRON SUCROSE COMPLEX 100 ML IV SCH (08:55)
[2024-04-12] MEDS ORDERED: ceFAZolin 2 GM/D5W50ml 50 ML IV ONE (09:29)
[2024-04-12] MEDS ORDERED: KETAMINE 50mg/ML 1ml syringe ONE (09:30)
[2024-04-12] MEDS ORDERED: fentaNYL CITRATE 100 MCG/2 ML VL ONE (09:30)
[2024-04-12] MEDS ORDERED: ONDANSETRON HCL 4 MG/2 ML VIAL ONE (09:30)
[2024-04-12] MEDS ORDERED: MIDAZOLAM HCL 2MG/2ML 2ml VIAL (1mg/ml) ONE (09:30)
[2024-04-12] MEDS ORDERED: SODIUM CHLORIDE LOCK 10 ML ONE (09:30)
[2024-04-12] MEDS ORDERED: LIDOCAINE 1% INJ PF 5ML AMP ONE (09:30)
[2024-04-12] MEDS ORDERED: PROPOFOL 10 MG/ML 20 ML IV ONE (09:31)
[2024-04-12] MEDS: BUPIVACAINE 0.25% INJ 50ML VIAL ONE (10:00)
[2024-04-12] MEDS ORDERED: OXYCODONE W/ ACETAMINOPHEN 5/325MG TABLET PO PRN (10:45)
[2024-04-12] MEDS: amLODIPine BESYLATE 5 MG TAB PO SCH (11:17)
[2024-04-12] MEDS: FAMOTIDINE 20 MG TAB PO SCH (11:18)
[2024-04-12] MEDS: LEVOTHYROXINE SODIUM 25 MCG TAB PO SCH (11:19)
[2024-04-12] MEDS: LOSARTAN POTASSIUM 25 MG TAB PO SCH (11:20)
[2024-04-12] MEDS: cefTRIAXone 1GM/50ML D5W 50 ML IV SCH (11:20)
[2024-04-13] VITALS (8 sets, daily range): BP systolic 134–167; BP diastolic 51–66; PULSE 64–80; RESP 12–20; TEMP 97.5–98.5; O2SAT 95–100
[2024-04-13 06:05] LABS: Basophils # (auto) 0 10 ^3/uL (0-0.2); Basophils % (auto) 0.3 % (0.0-2.0); Eosinophils # (auto) 0.4 10 ^3/uL (0-0.8); Eosinophils % (auto) 4.3 % (0.0-7.0); Lymphocytes # (auto) 0.5 10 ^3/uL (0.4-5.4); Lymphocytes % (auto) 6.3 % (10.0-50.0); Mean Corpuscular Hgb Conc. 32.1 g/dL (32.0-36.0); Mean Corpuscular Volume 83.9 fL (80.0-100.0); Monocytes # (auto) 0.4 10 ^3/uL (0-1.3); Monocytes % (auto) 4.9 % (0.0-12.0); Neutrophils # (auto) 7.2 10 ^3/uL (1.6-8.6); Neutrophils % (auto) 84.2 % (37.0-80.0); Red Blood Cells 2.98 10^6/uL (4.0-5.20); Red Cell Distribution Width 15.1 % (11.8-14.3); White Blood Cell 8.5 10^3/uL (4.4-10.8)
[2024-04-13 06:22] LABS: Anion Gap 6 (5-15); Carbon Dioxide 24 mmol/L (20-30); Chloride 110 mmol/L (98-107); Potassium 5.4 mmol/L (3.5-5.1); Sodium 140 mmol/L (136-145)
[2024-04-13 06:23] LABS: Calcium 9.8 mg/dL (8.5-10.1)
[2024-04-13 06:28] LABS: Blood Urea Nitrogen 35 mg/dL (9-23); Glucose 83 mg/dL (74-106)
[2024-04-13] MEDS ORDERED: PATI1POW PO (14:36)
[2024-04-13] MEDS ORDERED: SENN-105 PO (14:36)
[2024-04-13] MEDS: SODIUM ZIRCONIUM CYCL 10 GM PAK PO ONE (14:38)
[2024-04-13] MEDS: hydrOXYzine HCL 10 MG TAB PO ONE (16:35)
== END 2024-04-13 19:33 | disposition home health service (06) | DRG 617 ==
LOC: TELE-CENTR 13:05 → UNDOADMIN 13:05 → TELE-CENTR 15:21
PROVIDERS: ADMIT Hospitalist; ATTEND Internal Medicine
PROC: 0Y6R0Z0 Detachment at Right 2nd Toe, Complete, Open Approach (ICD-10-PCS; principal; 2024-04-12 09:43)
DX: E11.69 Type 2 diabetes mellitus with other specified complication (principal); L03.115 Cellulitis of right lower limb; M86.8X7 Other osteomyelitis, ankle and foot; I12.9 Hypertensive chronic kidney disease with stage 1 through stage 4 chronic kidney disease, or unspecified chronic kidney disease; N18.9 Chronic kidney disease, unspecified; E78.5 Hyperlipidemia, unspecified; F31.9 Bipolar disorder, unspecified; E66.9 Obesity, unspecified; E11.51 Type 2 diabetes mellitus with diabetic peripheral angiopathy without gangrene; E11.22 Type 2 diabetes mellitus with diabetic chronic kidney disease; Z82.0 Family history of epilepsy and other diseases of the nervous system; Z68.32 Body mass index [BMI] 32.0-32.9, adult; Z79.4 Long term (current) use of insulin; Z82.49 Family history of ischemic heart disease and other diseases of the circulatory system; Z83.3 Family history of diabetes mellitus; Z81.8 Family history of other mental and behavioral disorders; Z89.429 Acquired absence of other toe(s), unspecified side; Z80.0 Family history of malignant neoplasm of digestive organs; E11.621 Type 2 diabetes mellitus with foot ulcer
CPT/HCPCS: 36415; 71045; 80048; 80053; 81001; 83605; 83735; 85025; 85610; 85730; 86850; 86900; 86901; 87040; 93005; G0378; J1756; J2250; J2405; J2704; J3490

== ENCOUNTER → 2025-02-17 | Day surgery (SDC) | payer OTHER ==
[~2025-02-17] VITALS: Ht 157.5 cm; Wt 78.5 kg
[~2025-02-17] MED LIST changes: +DULO60CA41 PO; +ETOMIDATE (2MG/ML) 20ML VIAL IV ONE; +FEBU80TA6 PO; +FERR1TAB17 PO; +GLYCOPYRROLATE 0.2 MG/ML 1ML VIAL ONE; +HYDROCORTISONE SOD SUCC 100 MG/2ML INJ VIAL ONE; +HYDROmorphone HCL 2 MG/ML VL/or syr IV PRN; +KETAMINE 50mg/ML 1ml syringe ONE; +KETOROLAC TROMETH 30 MG/ML 1ML VIAL ONE; +LIDOCAINE 2% (LOCAL ANESTH.) PF 5ml SDV ONE; +MIDAZOLAM HCL 2MG/2ML 2ml VIAL (1mg/ml) ONE; +ONDANSETRON HCL 4 MG/2 ML VIAL ONE; +PHENYLEPHRINE HCL 10 MG/ML VL ONE; +PREGABALIN CAPSULE 75 MG CAP ONE; +PROPOFOL 10 MG/ML 20 ML IV ONE; +ePHEDrine SULFATE 50 MG/ML AMP ONE; +fentaNYL CITRATE 100 MCG/2 ML VL ONE
[2025-02-17] MEDS: ceFAZolin 2 GM/D5W50ml 50 ML IV ONE (07:30)
[2025-02-17] MEDS: BUPIVACAINE HCL 0.25% P/F 10 ML VIAL ONE (07:52)
[2025-02-17] MEDS: LIDOCAINE 1% HCL (LOCAL ANESTH.) INJ 20ML MDV ONE (07:52)
[2025-02-17 08:05] VITALS: PULSE 68; RESP 12; O2SAT 100
[2025-02-17 09:50] VITALS: BP 156/67; PULSE 62; RESP 15; O2SAT 97
--- NOTE | 2025-02-19 16:52 | DVHOP2 ---
Operative Report - 2 Report Details Date: 02/17/25 Preop Diagnosis: Right carpal/cubital tunnel Postop Diagnosis: Right carpal/cubital tunnel Surgeon: Esteban Morgan MD Baling Machine Operator: Hector SHANE Anesthesiologist: Colin OZUNA Anesthesia: General, Local Consent: The patient was informed of the risks and benefits of the procedure. These include but are not limited to complications of anesthesia, postoperative infection, incomplete relief of symptoms, recurrence of symptoms, damage to blood vessels, nerves and tendons, deep venous thrombosis, pulmonary embolism and possible need for repeat surgery in the future. Estimated Blood Loss: 5 cc Name of Procedure Performed Right carpal and cubital tunnel release Procedure Details Procedure Details: she has tried bracing/NSAIDs/injections without relief. she has had EMG/NCV testing that is consistent with her clinical exam. he wishes to proceed with surgical intervention. Risks/benefits/options and alternatives were discussed in depth with patient. Risks include but not exclusive to: bleeding, infection, nerve injury, chronic pain, stiffness, motor or sensory paralysis, loss of limb, deep venous thrombosis, and . PROCEDURE IN DETAIL: Patient was seen in the preoperative area. Consent was signed and then she was taken to the operating room. With the patient under adequate anesthesia, the right upper extremity was prepped and draped in a sterile manner. The arm was exsanguinated. The tourniquet was elevated at 250 mm/Hg. Construction lines were made on the palm to identify the ring ray. A transverse incision was made in the wrist, between FCR and FCU, one finger breadth proximal to the interval between the glabrous skin of the palm and normal forearm skin. Construction lines were made on the right palm to identify the ring ray. A 3 cm vertical incision made in midpalm along ring finger. Blunt dissection exposed the antebrachial fascia. Hemostasis was obtained with bipolar cautery. A synovial elevator was used to palpate the surface of the transverse carpal ligament. We opened the transverse carpal ligament under direct vision. Radial and ulnar edges of the transverse carpal ligament were identified, and complete release was confirmed. We then made a 5 cm incision over cubital tunnel. Blunt dissection to ulnar nerve. At that point ulnar nerve protected and cubital release done releasing the ulnar nerve. Hemostasis maintained with bipolar cautery. Patients nerve stayed within the groove so did not need transposition. The wound was then closed with 3-0 nylon for carpal and 2-0 vicryl/jeremiah for cubital tunnel. sterile dressing was applied. The tourniquet was deflated. The patient was awakened from anesthesia and returned to the Recovery Room in satisfactory condition, having tolerated the procedure well. Condition Good Disposition Home ESTEBAN MORGAN . February 19, 2025 16:52
== END | disposition home or self-care (01) ==
LOC: SUR 06:06
PROVIDERS: ATTEND Orthopaedic Surgery Adult Reconstructive Orthopaedic Surgery
DX: G56.01 Carpal tunnel syndrome, right upper limb (principal); G56.21 Lesion of ulnar nerve, right upper limb; F41.9 Anxiety disorder, unspecified; F32.A Depression, unspecified; K21.9 Gastro-esophageal reflux disease without esophagitis; I13.0 Hypertensive heart and chronic kidney disease with heart failure and stage 1 through stage 4 chronic kidney disease, or unspecified chronic kidney disease; E11.22 Type 2 diabetes mellitus with diabetic chronic kidney disease; I50.9 Heart failure, unspecified; N18.4 Chronic kidney disease, stage 4 (severe); Z88.8 Allergy status to other drugs, medicaments and biological substances; Z86.2 Personal history of diseases of the blood and blood-forming organs and certain disorders involving the immune mechanism; Z79.899 Other long term (current) drug therapy
CPT/HCPCS: 64718; 64721; J0690; J1720; J1885; J2003; J2250; J2371; J2405; J2704; J3010; J3490